=== PATIENT | female | born 1995 | race Two or more races ===

== ENCOUNTER 2017-10-17 06:56 | Inpatient (IN) | payer OTHER ==
[~2017-10-17] VITALS: Ht 154.9 cm; Wt 3.2 kg
[2017-10-17] MEDS ORDERED: FOLIC ACID1 MG PO (08:50)
== END 2017-10-20 15:00 | disposition home or self-care (01) | DRG 766 ==
LOC: OB/GYN 06:56 → LDR 06:56 → OB/GYN 22:32
PROVIDERS: Obstetrics & Gynecology
PROC: 4A1HXCZ Monitoring of Products of Conception, Cardiac Rate, External Approach (ICD-10-PCS; 2017-10-17)
PROC: 4A033R1 Measurement of Arterial Saturation, Peripheral, Percutaneous Approach (ICD-10-PCS; 2017-10-17)
PROC: 10D00Z1 Extraction of Products of Conception, Low, Open Approach (ICD-10-PCS; principal; 2017-10-17 20:00)
DX: O76 Abnormality in fetal heart rate and rhythm complicating labor and delivery (principal); O62.1 Secondary uterine inertia; Z37.0 Single live birth; Z3A.39 39 weeks gestation of pregnancy

== ENCOUNTER → 2019-12-16 09:00 | Outpatient (CLI) | payer OTHER ==
[~2019-12-16 09:00] MED LIST: FOLIC ACID1 MG PO
== END | disposition home or self-care (01) ==
LOC: LAB 09:00
DX: J11.1 Influenza due to unidentified influenza virus with other respiratory manifestations (principal); D64.0 Hereditary sideroblastic anemia; J44.9 Chronic obstructive pulmonary disease, unspecified

== ENCOUNTER 2020-02-06 13:39 | Outpatient (CLI) | payer OTHER | END 2020-02-06 13:55 | disposition home or self-care (01) | LOC: SONOGRAMA 13:39 | PROVIDERS: ATTEND Urology | DX: R31.1 Benign essential microscopic hematuria (principal); N30.00 Acute cystitis without hematuria ==

== ENCOUNTER 2020-03-09 13:42 | Outpatient (CLI) | payer OTHER | END 2020-03-09 13:55 | disposition home or self-care (01) | LOC: SONOGRAMA 13:42 → MAMO-SONO 03-11 07:15 | PROVIDERS: ATTEND Surgery | DX: R10.11 Right upper quadrant pain (principal) ==

== ENCOUNTER 2020-03-15 06:14 | Day surgery (SDC) | payer OTHER ==
[2020-03-15] MEDS ORDERED: ZOFRAN8 MG PO (11:52)
[2020-03-15] MEDS ORDERED: ULTRACET PO (11:53)
[2020-03-15] MEDS ORDERED: PROTONIX40 MG PO (11:53)
== END 2020-03-15 14:05 | disposition home or self-care (01) ==
LOC: CIR.AMB 06:14
PROVIDERS: ATTEND Surgery
DX: K80.10 Calculus of gallbladder with chronic cholecystitis without obstruction (principal); Z20.828 Contact with and (suspected) exposure to other viral communicable diseases

== ENCOUNTER → 2020-09-02 | Emergency (ER) | payer OTHER ==
[~2020-09-02] VITALS: Ht 154.9 cm; Wt 53.1 kg
[~2020-09-02] MED LIST changes: +PROTONIX40 MG PO; +ULTRACET PO; +ZOFRAN8 MG PO
== END | disposition home or self-care (01) ==
LOC: ER 07:41
DX: K52.9 Noninfective gastroenteritis and colitis, unspecified (principal); Z03.818 Encounter for observation for suspected exposure to other biological agents ruled out

== ENCOUNTER 2021-01-27 19:17 | Emergency (ER) | payer OTHER ==
[~2021-01-27] VITALS: Ht 154.9 cm; Wt 51.7 kg
== END 2021-01-28 01:21 | disposition home or self-care (01) ==
LOC: ER 19:17
DX: J06.9 Acute upper respiratory infection, unspecified (principal); B34.9 Viral infection, unspecified; B96.0 Mycoplasma pneumoniae [M. pneumoniae] as the cause of diseases classified elsewhere; Z11.52 Encounter for screening for COVID-19

== ENCOUNTER 2021-07-11 10:29 | Emergency (ER) | payer OTHER ==
[~2021-07-11] VITALS: Ht 154.9 cm; Wt 50.3 kg
[2021-07-11] MEDS ORDERED: TUSSI PRES-B L480 ML PO (13:25)
[2021-07-11] MEDS ORDERED: ZITHROMAX200 MG PO (13:25)
== END 2021-07-11 13:29 | disposition home or self-care (01) ==
LOC: ER 10:29
DX: A49.3 Mycoplasma infection, unspecified site (principal); Z03.818 Encounter for observation for suspected exposure to other biological agents ruled out

== ENCOUNTER 2022-04-28 09:54 | Emergency (ER) | payer OTHER ==
[~2022-04-28] VITALS: Ht 154.9 cm; Wt 49.9 kg
[~2022-04-28 09:54] MED LIST changes: +TUSSI PRES-B L480 ML PO; +ZITHROMAX200 MG PO
== END 2022-04-28 12:09 | disposition home or self-care (01) ==
LOC: ER 09:54
DX: J06.9 Acute upper respiratory infection, unspecified (principal); Z20.828 Contact with and (suspected) exposure to other viral communicable diseases

== ENCOUNTER 2023-01-17 22:46 | Emergency (ER) | payer OTHER ==
[~2023-01-17] VITALS: Ht 154.9 cm; Wt 50.3 kg
== END 2023-01-18 14:34 | disposition home or self-care (01) ==
LOC: ER 22:46
DX: R10.31 Right lower quadrant pain (principal)

== ENCOUNTER 2024-05-12 22:12 | Emergency (ER) | payer OTHER ==
[~2024-05-12] VITALS: Ht 154.9 cm; Wt 50.3 kg
== END 2024-05-13 01:02 | disposition home or self-care (01) ==
LOC: ER 22:13
DX: N61.1 Abscess of the breast and nipple (principal)